=== PATIENT | male | born 1945 | race Caucasian/White ===

== ENCOUNTER → 2017-04-17 | Outpatient (CLI) | payer OTHER | END | disposition home or self-care (01) | LOC: RD 16:18 | DX: K43.9 Ventral hernia without obstruction or gangrene (principal); I10 Essential (primary) hypertension ==

== ENCOUNTER → 2017-06-07 | Day surgery (SDC) | payer OTHER ==
[~2017-06-07] VITALS: Ht 167.6 cm; Wt 72.6 kg
[2017-06-07 09:35] LABS: CALCIUM 8.8 mg/dL (8.5-10.1); CARBON DIOXIDE 26.2 mmol/L (21-32); CHLORIDE SERUM 104 mmol/L (98-107); CREATININE SERUM 0.7 mg/dL (0.7-1.3); GFR1 > 60 mL/min; GLUCOSE SERUM 100 mg/dL (74-106); POTASSIUM SERUM 3.8 mmol/L (3.5-5.1); SODIUM SERUM 139 mmol/L (136-145)
[2017-06-07 09:36] LABS: PLATELET COUNT 261 x10^3mcL (130-400)
[2017-06-07 09:37] LABS: BASOPHIL % 0 % (0-2); RED CELL DISTRIBUTION WIDTH 16.2 % (11.5-14.5)
[2017-06-07 09:39] LABS: ALBUMIN 3.5 g/dL (3.4-5.0); ALKALINE PHOSPHATASE 100 U/L (46-116); ALT/SGPT 46 U/L (16-63); AST/SGOT 33 U/L (15-37); BILIRUBIN TOTAL 0.3 mg/dL (0.20-1.00); CHOLESTEROL 174 mg/dL (<200); LACTIC DEHYDROGENASE (LDH) 309 U/L (100-190); PHOSPHOROUS 4.2 mg/dL (2.5-4.9); TOTAL PROTEIN, SERUM 6.7 g/dL (6.4-8.2); URIC ACID 3.9 mg/dL (3.5-7.2)
[2017-06-07 14:50] VITALS: BP 136/81
== END | disposition home or self-care (01) ==
LOC: DS 08:48 → OR 11:00
PROVIDERS: Surgery
PROC: 0DNW0ZZ Release Peritoneum, Open Approach (ICD-10-PCS; 2017-06-07)
PROC: 0WUF0JZ Supplement Abdominal Wall with Synthetic Substitute, Open Approach (ICD-10-PCS; principal; 2017-06-07 10:30)
DX: K43.2 Incisional hernia without obstruction or gangrene (principal); K66.0 Peritoneal adhesions (postprocedural) (postinfection); I10 Essential (primary) hypertension; D64.9 Anemia, unspecified; J45.909 Unspecified asthma, uncomplicated; Z86.718 Personal history of other venous thrombosis and embolism; Z85.038 Personal history of other malignant neoplasm of large intestine
CPT/HCPCS: J0330; J0690; J1170; J2405; J2704; J2710; J3010; J3490; J7120

== ENCOUNTER 2017-08-24 19:51 | Inpatient (IN) | payer OTHER, MEDICAID ==
[~2017-08-24] VITALS: Ht 162.6 cm; Wt 72.6 kg
[2017-08-24 19:59] VITALS: Ht 162.6 cm; Wt 72.6 kg
[2017-08-24 22:19] LABS: BASOPHIL % 0.9 % (0-2); PLATELET COUNT 284 x10^3mcL (130-400)
[2017-08-24 22:20] LABS: RED CELL DISTRIBUTION WIDTH 15.8 % (11.5-14.5)
[2017-08-24 22:31] LABS: CALCIUM 9.5 mg/dL (8.5-10.1); CARBON DIOXIDE 26.2 mmol/L (21-32); CHLORIDE SERUM 106 mmol/L (98-107); CREATININE SERUM 0.7 mg/dL (0.7-1.3); GFR1 > 60 mL/min; GLUCOSE SERUM 93 mg/dL (74-106); POTASSIUM SERUM 4.3 mmol/L (3.5-5.1); SODIUM SERUM 142 mmol/L (136-145)
[2017-08-24 22:36] LABS: ALBUMIN 3.9 g/dL (3.4-5.0); ALKALINE PHOSPHATASE 103 U/L (46-116); ALT/SGPT 43 U/L (16-63); AMYLASE 44 U/L (25-115); AST/SGOT 38 U/L (15-37); BILIRUBIN TOTAL 0.23 mg/dL (0.20-1.00); LIPASE 74 IU/L (73-393); TOTAL PROTEIN, SERUM 7.4 g/dL (6.4-8.2)
[2017-08-25] VITALS (7 sets, daily range): BP systolic 101–146; BP diastolic 59–76
[2017-08-25] MEDS ORDERED: FUROSEMIDE20 MG PO (03:55)
[2017-08-25] MEDS ORDERED: MELOXICAM15 M1 PO (03:55)
[2017-08-25] MEDS ORDERED: METOPROLOL TART25 M1 PO (03:56)
[2017-08-25] MEDS ORDERED: ZOLOFT50 MG PO (03:56)
[2017-08-25] MEDS ORDERED: LISINOPRIL10 MG PO (03:57)
[2017-08-25] MEDS ORDERED: SUCRALFATE1 GM PO (03:58)
[2017-08-25 04:28] LABS: T3 TOTAL 1.17 ng/mL
[2017-08-25 04:33] LABS: FREE T4 0.92 ng/dL (0.76-1.46); FREE THYROXINE INDEX 2.3 ug/dL (1.4-4.5); T4(THYROXINE) 6.4 ug/dL (4.7-13.3)
[2017-08-25 04:49] LABS: MAGNESIUM 2.5 mg/dL (1.8-2.4); PHOSPHOROUS 5.3 mg/dL (2.5-4.9)
[2017-08-25 04:50] LABS: CHOLESTEROL/HDL RATIO 2.4
[2017-08-25] MEDS ORDERED: SULFASALAZINE500 M1 PO (05:45)
[2017-08-25 06:21] LABS: CALCIUM 8.4 mg/dL (8.5-10.1); CARBON DIOXIDE 26.4 mmol/L (21-32); CHLORIDE SERUM 106 mmol/L (98-107); CREATININE SERUM 0.6 mg/dL (0.7-1.3); GFR1 > 60 mL/min; GLUCOSE SERUM 90 mg/dL (74-106); POTASSIUM SERUM 3.5 mmol/L (3.5-5.1); SODIUM SERUM 140 mmol/L (136-145)
[2017-08-25 06:32] LABS: PLATELET COUNT 223 x10^3mcL (130-400)
[2017-08-25 06:56] LABS: RED CELL DISTRIBUTION WIDTH 15.9 % (11.5-14.5)
[2017-08-25 13:26] LABS: microscopic required? NO
[2017-08-25 13:40] LABS: UA SPECIFIC GRAVITY 1.025 (1.005-1.035); urine erythrocyte NEGATIVE (NEGATIVE)
[2017-08-25 13:49] LABS: AMPHETAMINE QUAL UR NONE DETECTED (NEG <=1000)
[2017-08-26 05:19] VITALS: BP 132/70
[2017-08-26 06:42] LABS: IRON 41 ug/dL (65-170); TOTAL IRON BINDING CAPACITY 304 ug/dL (250-450)
[2017-08-26 06:49] LABS: PLATELET COUNT 225 x10^3mcL (130-400)
[2017-08-26 06:50] LABS: CALCIUM 8.6 mg/dL (8.5-10.1); CARBON DIOXIDE 24.5 mmol/L (21-32); CHLORIDE SERUM 106 mmol/L (98-107); CREATININE SERUM 0.6 mg/dL (0.7-1.3); GFR1 > 60 mL/min; GLUCOSE SERUM 88 mg/dL (74-106); MAGNESIUM 2.1 mg/dL (1.8-2.4); PHOSPHOROUS 3.8 mg/dL (2.5-4.9); POTASSIUM SERUM 3.7 mmol/L (3.5-5.1); SODIUM SERUM 139 mmol/L (136-145)
[2017-08-26 07:05] LABS: RED CELL DISTRIBUTION WIDTH 15.9 % (11.5-14.5)
[2017-08-26 07:47] LABS: RED BLOOD CELLS 3.61 M/mm3 (4.52-5.90)
[2017-08-26 08:45] LABS: BASOPHIL 0 % (0-2)
[2017-08-26 08:46] LABS: MONOCYTE 12 % (0-7)
[2017-08-26 08:47] LABS: BAND NEUTROPHIL 0 % (0-10); SEGMENTED NEUTROPHILS 70 % (37-75)
[2017-08-26 08:48] LABS: PLATELET MORPHOLOGY PLATELETS NORMAL
[2017-08-26 08:49] LABS: ovalocyte/elliptocyte 1+; rbc morphology (normal/abnorm) ABNORMAL (NORMAL)
[2017-08-26 08:54] VITALS: BP 127/55
[2017-08-26 11:42] VITALS: BP 127/55
== END 2017-08-26 13:13 | disposition home or self-care (01) | DRG 391 ==
LOC: ED 19:51 → DU 23:12
PROVIDERS: Emergency Medicine; Family Medicine
DX: K52.9 Noninfective gastroenteritis and colitis, unspecified (principal); N17.0 Acute kidney failure with tubular necrosis; K62.7 Radiation proctitis; E83.39 Other disorders of phosphorus metabolism; E83.42 Hypomagnesemia; K04.7 Periapical abscess without sinus; D64.9 Anemia, unspecified; I10 Essential (primary) hypertension; J45.909 Unspecified asthma, uncomplicated; M19.90 Unspecified osteoarthritis, unspecified site; F32.9 Major depressive disorder, single episode, unspecified; Z68.25 Body mass index [BMI] 25.0-25.9, adult; Z85.038 Personal history of other malignant neoplasm of large intestine; Z86.718 Personal history of other venous thrombosis and embolism; W88.1XXS Exposure to radioactive isotopes, sequela
CPT/HCPCS: 83880; 84439; J1956; J3490; J7030; J7620; Q0092; Q9967

== ENCOUNTER 2017-08-27 13:59 | Emergency (ER) | payer OTHER ==
[~2017-08-27] VITALS: Ht 152.4 cm; Wt 72.6 kg
[~2017-08-27 13:59] MED LIST: FUROSEMIDE20 MG PO; LISINOPRIL10 MG PO; MELOXICAM15 M1 PO; METOPROLOL TART25 M1 PO; SUCRALFATE1 GM PO; SULFASALAZINE500 M1 PO; ZOLOFT50 MG PO
[2017-08-27 14:01] VITALS: BP 145/59; Ht 152.4 cm; Wt 72.6 kg
== END 2017-08-27 18:01 | disposition home or self-care (01) ==
LOC: ED 13:59
DX: K52.9 Noninfective gastroenteritis and colitis, unspecified (principal); I10 Essential (primary) hypertension; Z88.6 Allergy status to analgesic agent; Z88.8 Allergy status to other drugs, medicaments and biological substances
CPT/HCPCS: J1885

== ENCOUNTER 2017-09-06 18:21 | Emergency (ER) | payer OTHER, MEDICAID ==
[~2017-09-06] VITALS: Ht 160 cm; Wt 69.4 kg
[2017-09-06 19:36] VITALS: Ht 160 cm; Wt 69.4 kg
[2017-09-06 21:38] LABS: BASOPHIL % 0.9 % (0-2); PLATELET COUNT 258 x10^3mcL (130-400)
[2017-09-06 21:40] LABS: CALCIUM 8.8 mg/dL (8.5-10.1); CARBON DIOXIDE 28.4 mmol/L (21-32); CHLORIDE SERUM 105 mmol/L (98-107); CREATININE SERUM 0.7 mg/dL (0.7-1.3); GFR1 > 60 mL/min; GLUCOSE SERUM 75 mg/dL (74-106); POTASSIUM SERUM 3.6 mmol/L (3.5-5.1); RED CELL DISTRIBUTION WIDTH 16.1 % (11.5-14.5); SODIUM SERUM 138 mmol/L (136-145)
[2017-09-06 21:50] LABS: ALBUMIN 3.5 g/dL (3.4-5.0); ALKALINE PHOSPHATASE 106 U/L (46-116); ALT/SGPT 66 U/L (16-63); AST/SGOT 50 U/L (15-37); BILIRUBIN TOTAL 0.23 mg/dL (0.20-1.00); TOTAL PROTEIN, SERUM 6.6 g/dL (6.4-8.2)
[2017-09-06 22:41] LABS: microscopic required? NO
[2017-09-06 22:45] LABS: urine erythrocyte NEGATIVE (NEGATIVE)
[2017-09-07] VITALS: BP 144/87
== END 2017-09-07 | disposition home or self-care (01) ==
LOC: ED 18:21
PROVIDERS: Emergency Medicine
DX: R60.9 Edema, unspecified (principal)
CPT/HCPCS: 36415; Q0092

== ENCOUNTER → 2017-09-25 | Outpatient (CLI) | payer OTHER, MEDICAID | END | disposition home or self-care (01) | LOC: CT 15:12 | PROC: BQ2S1ZZ Computerized Tomography (CT Scan) of Left Lower Extremity using Low Osmolar Contrast (ICD-10-PCS; principal; 2017-09-25) | DX: M79.605 Pain in left leg (principal) | CPT/HCPCS: Q9967 ==

== ENCOUNTER 2017-10-11 03:39 | Emergency (ER) | payer OTHER, MEDICAID ==
[2017-10-11 04:37] VITALS: BP 131/82
== END 2017-10-11 04:38 | disposition home or self-care (01) ==
LOC: ED 03:39
DX: R60.0 Localized edema (principal); J45.909 Unspecified asthma, uncomplicated; I10 Essential (primary) hypertension

== ENCOUNTER 2017-11-26 19:14 | Inpatient (IN) | payer OTHER, MEDICAID ==
[~2017-11-26] VITALS: Ht 167.6 cm; Wt 72.6 kg
[2017-11-26 20:49] LABS: BASOPHIL % 0.7 % (0-2); PLATELET COUNT 293 x10^3mcL (130-400)
[2017-11-26 20:56] LABS: RED CELL DISTRIBUTION WIDTH 15.6 % (11.5-14.5)
[2017-11-26 20:58] LABS: CALCIUM 8.4 mg/dL (8.5-10.1); CARBON DIOXIDE 25.1 mmol/L (21-32); CHLORIDE SERUM 106 mmol/L (98-107); GFR1 > 60 mL/min; GLUCOSE SERUM 86 mg/dL (74-106); POTASSIUM SERUM 4.2 mmol/L (3.5-5.1); SODIUM SERUM 140 mmol/L (136-145)
[2017-11-26 21:03] LABS: ALKALINE PHOSPHATASE 114 U/L (46-116); ALT/SGPT 30 U/L (16-63); AST/SGOT 26 U/L (15-37); BILIRUBIN TOTAL 0.3 mg/dL (0.20-1.00); TOTAL PROTEIN, SERUM 7.7 g/dL (6.4-8.2)
[2017-11-26 21:11] LABS: UA SPECIFIC GRAVITY 1.025 (1.005-1.035); microscopic required? YES; urine erythrocyte NEGATIVE (NEGATIVE)
[2017-11-27] VITALS (7 sets, daily range): BP systolic 112–135; BP diastolic 57–80
[2017-11-27 06:32] LABS: BASOPHIL % 0.6 % (0-2); PLATELET COUNT 272 x10^3mcL (130-400); RED CELL DISTRIBUTION WIDTH 15.8 % (11.5-14.5)
[2017-11-27 09:40] LABS: ALBUMIN 3.8 g/dL (3.4-5.0); ALKALINE PHOSPHATASE 107 U/L (46-116); ALT/SGPT 30 U/L (16-63); AST/SGOT 27 U/L (15-37); BILIRUBIN TOTAL 0.45 mg/dL (0.20-1.00); CALCIUM 9.2 mg/dL (8.5-10.1); CARBON DIOXIDE 29.2 mmol/L (21-32); CHLORIDE SERUM 103 mmol/L (98-107); CREATININE SERUM 0.8 mg/dL (0.7-1.3); GFR1 > 60 mL/min; GLUCOSE SERUM 86 mg/dL (74-106); POTASSIUM SERUM 4.4 mmol/L (3.5-5.1); SODIUM SERUM 139 mmol/L (136-145); TOTAL PROTEIN, SERUM 7.2 g/dL (6.4-8.2)
[2017-11-28 05:28] VITALS: BP 135/66
[2017-11-28 09:33] VITALS: BP 145/80
[2017-11-28 11:56] LABS: CALCIUM 8.9 mg/dL (8.5-10.1); CARBON DIOXIDE 27.8 mmol/L (21-32); CHLORIDE SERUM 107 mmol/L (98-107); CREATININE SERUM 0.7 mg/dL (0.7-1.3); GFR1 > 60 mL/min; GLUCOSE SERUM 94 mg/dL (74-106); POTASSIUM SERUM 4.2 mmol/L (3.5-5.1); SODIUM SERUM 141 mmol/L (136-145)
[2017-11-28 13:42] VITALS: BP 115/52
[2017-11-28 18:09] VITALS: BP 121/57
[2017-11-28 20:43] VITALS: BP 108/64
[2017-11-29 00:28] VITALS: BP 134/62
[2017-11-29 05:29] VITALS: BP 147/66
[2017-11-29 06:06] LABS: BASOPHIL % 0.7 % (0-2); PLATELET COUNT 242 x10^3mcL (130-400)
[2017-11-29 06:22] LABS: RED CELL DISTRIBUTION WIDTH 15.6 % (11.5-14.5)
[2017-11-29 06:27] LABS: CALCIUM 8.1 mg/dL (8.5-10.1); CARBON DIOXIDE 27.5 mmol/L (21-32); CHLORIDE SERUM 107 mmol/L (98-107); CREATININE SERUM 0.7 mg/dL (0.7-1.3); GFR1 > 60 mL/min; GLUCOSE SERUM 90 mg/dL (74-106); MAGNESIUM 2.1 mg/dL (1.8-2.4); POTASSIUM SERUM 3.8 mmol/L (3.5-5.1); SODIUM SERUM 141 mmol/L (136-145)
[2017-11-29 08:35] VITALS: BP 140/73
[2017-11-29] MEDS ORDERED: PROTONIX40 MG PO (11:53)
[2017-11-29 13:16] VITALS: BP 112/63
[2017-11-29 19:43] VITALS: Ht 167.6 cm; Wt 72.6 kg
== END 2017-11-29 19:44 | disposition home or self-care (01) | DRG 379 ==
LOC: ED 19:14 → DU 11-27 01:11
PROVIDERS: Emergency Medicine; Internal Medicine; Internal Medicine Pulmonary Disease
PROC: 0DB68ZX Excision of Stomach, Via Natural or Artificial Opening Endoscopic, Diagnostic (ICD-10-PCS; principal; 2017-11-29 10:00)
DX: K29.71 Gastritis, unspecified, with bleeding (principal); K92.1 Melena; T39.395A Adverse effect of other nonsteroidal anti-inflammatory drugs [NSAID], initial encounter; K20.8 Other esophagitis; M19.90 Unspecified osteoarthritis, unspecified site; J45.909 Unspecified asthma, uncomplicated; I10 Essential (primary) hypertension; Z85.038 Personal history of other malignant neoplasm of large intestine; Z86.718 Personal history of other venous thrombosis and embolism; Z92.21 Personal history of antineoplastic chemotherapy; Z92.3 Personal history of irradiation; Y92.009 Unspecified place in unspecified non-institutional (private) residence as the place of occurrence of the external cause
CPT/HCPCS: 43235; 83880; J1200; J1610; J2250; J2270; J2310; J3010; J3490; J7613; Q0092; Q9967

== ENCOUNTER 2018-01-23 06:20 | Observation (INO) | payer OTHER, MEDICAID ==
[~2018-01-23] VITALS: Ht 162.6 cm; Wt 68.2 kg
[~2018-01-23 06:20] MED LIST changes: +PROTONIX40 MG PO
[2018-01-23 06:25] VITALS: Ht 162.6 cm; Wt 68.2 kg
[2018-01-23 11:51] VITALS: BP 158/93
[2018-01-23 17:10] LABS: CARBON DIOXIDE 29.3 mmol/L (21-32); CHLORIDE SERUM 106 mmol/L (98-107); CREATININE SERUM 0.6 mg/dL (0.7-1.3); GFR1 > 60 mL/min; GLUCOSE SERUM 86 mg/dL (74-106)
[2018-01-23 17:12] LABS: BASOPHIL % 0.5 % (0-2); PLATELET COUNT 267 x10^3mcL (130-400); RED CELL DISTRIBUTION WIDTH 15.3 % (11.5-14.5)
[2018-01-23 17:24] VITALS: BP 158/82
[2018-01-23 17:33] LABS: SODIUM SERUM 144 mmol/L (136-145)
[2018-01-23 17:38] LABS: POTASSIUM SERUM 2.7 mmol/L (3.5-5.1)
[2018-01-23 20:50] VITALS: BP 144/63
[2018-01-24 05:32] VITALS: BP 107/62
[2018-01-24 06:50] LABS: BASOPHIL % 0.9 % (0-2); PLATELET COUNT 255 x10^3mcL (130-400)
[2018-01-24 07:07] LABS: CALCIUM 8.8 mg/dL (8.5-10.1); CARBON DIOXIDE 27.8 mmol/L (21-32); CHLORIDE SERUM 113 mmol/L (98-107); CREATININE SERUM 0.6 mg/dL (0.7-1.3); GFR1 > 60 mL/min; GLUCOSE SERUM 88 mg/dL (74-106); POTASSIUM SERUM 3.8 mmol/L (3.5-5.1); SODIUM SERUM 149 mmol/L (136-145)
[2018-01-24 07:20] LABS: RED CELL DISTRIBUTION WIDTH 15.2 % (11.5-14.5)
[2018-01-24 09:45] VITALS: BP 146/69
[2018-01-24 16:04] VITALS: BP 146/69
== END 2018-01-24 18:16 | DRG 554 ==
LOC: ED 06:20 → MU 10:26
PROVIDERS: Internal Medicine Pulmonary Disease
DX: M19.90 Unspecified osteoarthritis, unspecified site (principal); E87.1 Hypo-osmolality and hyponatremia; I10 Essential (primary) hypertension; E87.6 Hypokalemia; Z85.038 Personal history of other malignant neoplasm of large intestine; Z86.718 Personal history of other venous thrombosis and embolism; Z92.21 Personal history of antineoplastic chemotherapy; Z92.3 Personal history of irradiation
CPT/HCPCS: 97110-GP; 97530-GP; G0378; J1885; J3480; J7030; Q0092